=== PATIENT | female | born 2005 | race Caucasian/White ===

== ENCOUNTER 2023-01-29 19:10 | Emergency (ER) | payer BC ==
[2023-01-29] MEDS ORDERED: Ketorolac 60 MG/2 ML SDV IM ONE (20:19)
[2023-01-29] MEDS ORDERED: Amoxicillin/Clavulanate K 875-125 MG Tab PO ONE (20:20)
== END 2023-01-30 02:37 | disposition home or self-care (01) ==
LOC: JD.ED 19:10
DX: K03.81 Cracked tooth (principal); K02.9 Dental caries, unspecified; Z79.899 Other long term (current) drug therapy
CPT/HCPCS: 96372; 99282; A9270; J1885; 99283